=== PATIENT | female | born 1965 | race Two or more races ===

== ENCOUNTER 2023-10-18 11:32 | Emergency (ER) | payer MEDICAID, OTHER ==
[2023-10-18 13:39] VITALS: BP 113/79; PULSE 84; RESP 18; TEMP 98.5; O2SAT 99
[2023-10-18] MEDS ORDERED: AUG875T PO (13:59)
[2023-10-18] MEDS ORDERED: PROM1SOL4 PO (13:59)
[2023-10-18] MEDS ORDERED: IBUP-1454 PO (13:59)
[2023-10-18] MEDS ORDERED: METH4PAK PO (13:59)
== END 2023-10-18 14:04 | disposition home or self-care (01) ==
LOC: ER 11:32
DX: B34.9 Viral infection, unspecified (principal)